=== PATIENT | female | born 1940 | race Caucasian/White ===

== ENCOUNTER 2017-09-05 08:24 | Emergency (ER) | payer MEDICARE, SELFPAY ==
[2017-09-05 08:25] VITALS: BP 122/78; PULSE 94; RESP 18; TEMP 36.6; O2SAT 98; BMI 26.7
--- NOTE | 2017-09-05 08:42 | RAD_ITS ---
STUDY: X-RAY - RIGHT RADIUS AND ULNA REASON FOR EXAM: Female, 76 years old. Cat bite. TECHNIQUE: 2 view(s) of the forearm. COMPARISON: None. FINDINGS: There is no demonstrated soft tissue swelling. Normal visualized radius. Normal visualized ulna. RAD/Forearm 2 Views IMPRESSION: Normal x-ray examination of the radius and ulna. Electronically Signed: Rolf Vogel MD at 10:01 EDT Tel [phone], Service support ,
--- NOTE | 2017-09-05 08:46 | ED.DCSUM_ITS ---
- ER Visit Summary Date of Service: 09/05/17 Chief Complaint: Cat bite History of Present Illness: The patient is a 76 F bit by her cat on the right forearm yesterday. The area was red and swollen this morning. She states she did clean the area thoroughly immediately after the injury. Patient was admitted for IV antibiotics for 2 days a year ago when she was bit in the left hand. She also has a history of infective endocarditis in 2013. Physical Examination: Vital signs are unremarkable. Patient is in no acute distress and nontoxic appearing. Head neck examination is unremarkable. Heart is regular rate and rhythm without murmur. Lung sounds are clear. Right upper extremity examination reveals a linear scab measuring 4 mm in length from the bite wound. There is 4 cm diameter surrounding erythema. There is no fluctuance or drainage. There is no lymphangitic streaking. She has no palpable lymph nodes at the elbow or axilla. Test Results: CBC was normal white count was 78% neutrophils. Chemistry studies are unremarkable. Right forearm x-rays show no radiopaque foreign body. Emergency Department Course and Treatment: Patient is given a dose IV Unasyn here. Blood cultures were obtained. On repeat evaluation patient is resting comfortably. Erythema around the bite is improving. Area is outlined with a surgical marker. Patient will be treated with Augmentin at home and return if symptoms worsen. Treatment Plan: [] Disposition: Discharge Impression: Cat bite right forearm This note was generated with [employer] dictation software. It may contain incorrect words, spelling, and punctuation that were not noted in review of the chart prior to signing ED Disposition - Plan for ED Patient: Chief Complaint: Bite Referrals: Sirisha Mccall MD [Primary Care Provider] -
[2017-09-05 09:28] LABS: Absolute Lymphocyte Count 0.37 X10^3/ul (0.83-4.51); Absolute Neutrophil Count 3.8 X10^3/uL (2.0-7.7); Basophil# 0.01 X10^3/uL; Basophil% 0.2 % (0-1); Eosinophils% 2.1 % (0-5); Hematocrit 38.9 % (37-47); Hemoglobin 12.9 g/dl (12.0-15.0); Lymphocyte # 0.37 X10^3/ul (4.0); Lymphocyte % 7.8 % (19-41); Mean Corp Hgb Conc 33.2 g/gl (32-36); Mean Corpuscular Hgb 31.1 pg (27.0-32.0); Mean Corpuscular Volume 93.7 fL (81-99); Mean Platelet Vol. 10.8 fl (6.2-12.0); Monocyte# 0.53 X10^3/uL; Monocyte% 11.1 % (0-10); Neutrophil # 3.76 X10^3/uL (2.7-7.7); Neutrophil % 78.8 % (47-70); Platelet Count 217 K/mm3 (150-450); RBC Distribution Width CV 13.3 % (11.6-14.6); RBC Distribution Width SD 44.2 fl (35.1-43.9); Red Blood Count 4.15 M/mm3 (4.2-5.4); White Blood Count 4.8 K/mm3 (4.4-11.0)
[2017-09-05 09:29] VITALS: BP 123/65; PULSE 70; RESP 16; O2SAT 100
[2017-09-05 09:36] LABS: Differential Indicated SCAN CRITERIA MET; POSITIVE COUNT NO; POSITIVE DIFFERENTIAL YES; POSITIVE MORPHOLOGY NO
[2017-09-05 09:37] LABS: Anion Gap 5 (5-15); BUN 19 mg/dL (7-18); Calcium,Total 9.3 mg/dL (8.5-10.1); Chloride 107 mmol/L (98-107); EST Glomerular Filtration Rate 57 mL/min (>60); Est Glom Filt Rate - Afr Amer 70 mL/min (>60); Estimated Creatinine Clearance 40.21 ml/min; Glucose 91 mg/dL (74-106); Sodium Level 142 mmol/L (136-145)
--- NOTE | 2017-09-05 10:33 | ED.DEP ---
ED Disposition - Plan for ED Patient: Disposition: Home or Assisted Living Chief Complaint: Bite Instructions: ED Bite Cat Prescriptions: Amox/Clavulanate Tablet [Augmentin Tablet] 875 mg PO Q12H #20 tablet Referrals: Sirisha Mccall MD [Primary Care Provider] - 1 Week
[2017-09-05 11:07] VITALS: BP 122/66; PULSE 71; RESP 18; O2SAT 99
== END 2017-09-05 11:08 | disposition home or self-care (01) ==
PROVIDERS: Emergency Provider Emergency Medicine; Family Provider Internal Medicine; PCP Internal Medicine
DX: S50.871A Other superficial bite of right forearm, initial encounter (principal); W55.01XA Bitten by cat, initial encounter; Y93.9 Activity, unspecified; Y92.9 Unspecified place or not applicable; I10 Essential (primary) hypertension; E78.00 Pure hypercholesterolemia, unspecified; J45.909 Unspecified asthma, uncomplicated; Z85.038 Personal history of other malignant neoplasm of large intestine; Z79.899 Other long term (current) drug therapy; Z87.891 Personal history of nicotine dependence
CPT/HCPCS: 73090; 80048; 85025; 87040; 96365; 99283; J7030; A4216; J0295

== ENCOUNTER → 2018-06-29 10:35 | Outpatient (CLI) | payer MEDICARE, SELFPAY ==
[2018-06-18 15:14] VITALS: BMI 27.6
[2018-06-29 11:40] LABS: AST(SGOT) 32 U/L (15-37); Alanine Aminotransfer ALT/SGPT 35 U/L (13-56); Albumin, Serum 3.9 g/dL (3.2-5.0); Alkaline Phosphatase 74 U/L (45-117); Bilirubin, Direct 0.14 mg/dL (0.00-0.30); Cholesterol 194 mg/dL (200); Globulin 3.7 g/dL (2.2-4.2); High Density Lipoprotein 84 mg/dL; Protein, Total 7.6 g/dL (6.4-8.2); Triglycerides 72 mg/dL; Very Low Density Lipoprotein 14 mg/dL (5-40)
== END ==
PROVIDERS: Family Provider Internal Medicine; PCP Internal Medicine; Referring Provider Internal Medicine Cardiovascular Disease; Visit Provider Internal Medicine Cardiovascular Disease
DX: E78.00 Pure hypercholesterolemia, unspecified (principal)
CPT/HCPCS: 36415; 80061; 80076

== ENCOUNTER 2020-05-14 06:05 | Outpatient (RCR) | payer MEDICARE, SELFPAY ==
[2019-06-26 15:45] VITALS: BMI 26.7
[2020-05-14] MEDS: COVID-19 VACC, MRNA(PFIZER)/PF 30 MCG/0.3 ML SYRINGE IM (16:24)
[2020-06-04] MEDS: COVID-19 VACC, MRNA(PFIZER)/PF 30 MCG/0.3 ML SYRINGE IM (16:21)
== END 2020-08-18 23:59 ==
LOC: IMMUN 06:05
PROVIDERS: PCP Internal Medicine; Referring Provider Family Medicine; Visit Provider Family Medicine
DX: Z23 Encounter for immunization (principal)
CPT/HCPCS: 0001A; 0002A; 91300

== ENCOUNTER 2022-03-31 19:03 | Emergency (ER) | payer MEDICARE, SELFPAY ==
[2022-03-31 19:05] VITALS: BP 128/60; PULSE 50; RESP 17; TEMP 36.5; O2SAT 98; BMI 18.8
--- NOTE | 2022-03-31 19:37 | CT_ITS ---
STUDY: CT BRAIN WITHOUT CONTRAST REASON FOR EXAM: Female, 81 years old. confusion Individualized dose optimization techniques were used for this CT. TECHNIQUE: Transaxial CT imaging of the brain was performed without administration of intravenous contrast material. COMPARISON: None FINDINGS: There are calcifications around the carotid artery. These are noted in the cavernous carotid arteries. Normal calvarium. Normal soft tissues. There is mild cerebral atrophy with widening of the extra-axial spaces and ventricular dilatation. There are areas of decreased attenuation within the white matter tracts of the supratentorial brain, consistent with microvascular disease changes. Normal basal ganglia and thalami. Normal brainstem. There is mild cerebellar atrophy. There is no intracranial hemorrhage. There are no findings of an acute ischemic infarction. Normal visualized paranasal sinuses. ASPECTS Score for Acute Strokes: 12/20 CT/Brain/Head without Contrast IMPRESSION: There are no acute findings. Chronic involutional changes of the brain. Electronically Signed: Oli Kinsey MD at 21:02 EST ,
--- NOTE | 2022-03-31 20:44 | RAD_ITS ---
STUDY: XR Chest 1 View 03/31/2022 8:46 PM REASON FOR EXAM: Female, 81 years old. CHEST PAIN CAD COMPARISON: TECHNIQUE: XR Chest 1 View FINDINGS: There is no demonstrated pleural abnormality. Normal heart size. Normal mediastinum. Normal courtney. Prominent appearing increased interstitial lung markings. Normal visualized pulmonary arteries. There is atherosclerotic calcification of the aortic arch with tortuosity. There are diffuse degenerative changes of the visualized thoracic spine. There is degenerative osteoarthritis of the bilateral shoulders. There is no demonstrated abnormality of the visualized soft tissue structures of the upper abdomen. RAD/Chest 1 View (Portable) IMPRESSION: There are no acute findings. Electronically Signed: Oli Kinsey MD at 21:00 EST ,
[2022-03-31 21:08] LABS: Absolute Lymphocyte Count 0.58 X10^3/uL (0.83-4.51); Absolute Neutrophil Count 4.4 X10^3/uL (2.0-7.7); Basophil# 0.02 X10^3/uL; Basophil% 0.3 % (0-1); Eosinophils% 3.4 % (0-5); Hematocrit 37.7 % (37-47); Hemoglobin 11.6 g/dL (12.0-15.0); Lymphocyte # 0.58 X10^3/ul (0.83-4.51); Lymphocyte % 9.9 % (19-41); Mean Corp Hgb Conc 30.8 g/dL (32-36); Mean Corpuscular Hgb 29.7 pg (27.0-32.0); Mean Corpuscular Volume 96.4 fL (81-99); Mean Platelet Vol. 10.1 fl (6.2-12.0); Monocyte# 0.69 X10^3/uL; Monocyte% 11.8 % (0-10); NRBC Flagged by Analyzer 0 % (0-5); Neutrophil # 4.35 X10^3/uL (2.7-7.7); Neutrophil % 74.4 % (47-70); POSITIVE DIFFERENTIAL YES; Platelet Count 374 K/mm3 (150-450); RBC Distribution Width CV 13.2 % (11.6-14.6); RBC Distribution Width SD 46.8 fl (35.1-43.9); Red Blood Count 3.91 M/mm3 (4.2-5.4); White Blood Count 5.9 K/mm3 (4.4-11.0)
[2022-03-31 21:20] LABS: ALB/GLOB Ratio 0.8 RATIO (0.9-2.4); AST(SGOT) 30 U/L (15-37); Alanine Aminotransfer ALT/SGPT 25 U/L (13-56); Albumin, Serum 3.4 g/dL (3.2-5.0); Alkaline Phosphatase 76 U/L (45-117); Anion Gap 5 (5-15); BUN 15 mg/dL (7-18); Calcium,Total 9.3 mg/dL (8.5-10.1); Chloride 108 mmol/L (98-107); Creatinine, Serum 0.94 mg/dL (0.55-1.02); EST Glomerular Filtration Rate 61 mL/min (>60); Est Glom Filt Rate - Afr Amer 74 mL/min (>60); Globulin 4.1 g/dL (2.2-4.2); Glucose 77 mg/dL (74-106); Lipase 503 U/L (73-393); Potassium 3.8 mmol/L (3.5-5.1); Protein, Total 7.5 g/dL (6.4-8.2); Sodium Level 142 mmol/L (136-145)
[2022-03-31 21:49] LABS: Ammonia < 10.0 umol/L (11-32)
[2022-03-31 21:50] LABS: Bacteria 0 SEEN /hpf (None Seen); Mucous, Urine 0 SEEN /hpf (<or=2+); Red Blood Cells-Urine 0 SEEN /hpf (0-5); Squamous Epithelial Cells - UA 0 SEEN /hpf (5-10)
[2022-03-31 21:51] LABS: Color, Urine Yellow (Yellow); Glucose, Dipstick Normal (Normal); Ketone-Dipstick Negative (Negative); Leukocyte Esterase-Dipstick Negative /ul (Negative); Nitrite-Dipstick Negative (Negative); Occult Blood-Urine Negative /ul (Negative); Protein-Dipstick Negative (Negative); Specific Gravity, Urine 1.015 (1.002-1.030); Urine Bilirubin Dipstick Negative (Negative); Urine Clarity Clear (Clear); Urine Urobilinogen Normal (Normal); Urine pH 6.5 (5.0 - 8.0)
[2022-03-31 21:58] LABS: White Blood Cells 0-5 SEEN /hpf (0-5)
[2022-03-31 22:07] LABS: Differential Indicated SCAN CRITERIA MET
--- NOTE | 2022-03-31 22:19 | EX.ED.VIS.PS ---
HPI HPI - Psych History of Present Illness Chief Complaint: Confusion Narrative Narrative: 81-year-old female who denies significant past medical history presents via EMS with reported confusion. She states she does not know why she is here. However, she thought that she was in another city like [place]. She stated that she lives in [place] and knows her address, but she states that she was at home and all of a sudden the paramedics were there to pick her up. It was reported that she has a neighbor but no family and the neighbor checks in on her and thought she was more confused than usual. Patient denies any pain. No fevers or chills. No nausea or vomiting. She states I feel fine. [facility] Medical History (Updated 03/31/22 @ 22:27 by Gómez Morales MD) Arthritis Asthma Chronic anemia Depression Essential hypertension GERD (gastroesophageal reflux disease) History of infective endocarditis HLD (hyperlipidemia) HTN (hypertension) Infectious endarteritis Lumbar canal stenosis PAF (paroxysmal atrial fibrillation) Paroxysmal atrial fibrillation Pure hypercholesterolemia Syncope Home Medications pravastatin 40 mg tablet 40 mg PO QHS 01/09/14 [History Last Taken 08/11/16] fluoxetine 20 mg capsule 20 mg PO DAILY 02/24/14 [History Last Taken 08/12/16] omega-3 fatty acids-fish oil 300 mg-1,000 mg capsule 1 ea PO TID 02/24/14 [History Last Taken 08/12/16] potassium chloride 10 mEq tablet,extended release(part/cryst) 10 meq PO DAILY 02/24/14 [History Last Taken 08/12/16] ascorbic acid (vitamin C) 500 mg tablet 1 tab PO BID 03/02/14 [History Last Taken 08/12/16] magnesium 250 mg tablet 500 mg PO DAILY 03/02/14 [History Last Taken 08/12/16] Turmeric 500 units PO DAILY 03/23/17 [History Last Taken Unknown] calcium carbonate 600 mg calcium (1,500 mg) tablet 1,200 mg PO QDAY 03/23/17 [History Last Taken Unknown] cholecalciferol (vitamin D3) 50 mcg (2,000 unit) capsule 2,000 unit PO ONCE 03/23/17 [History Last Taken Unknown] cyanocobalamin (vitamin B-12) 5,000 mcg disintegrating tablet 5,000 mcg PO QDAY 06/26/17 [History Last Taken Unknown] lutein 20 mg tablet 20 mg PO DAILY 06/18/18 [History Last Taken Unknown] pyridoxine (vitamin B6) 100 mg tablet 100 mg PO DAILY 06/18/18 [History Last Taken Unknown] selenium 200 mcg capsule 200 mcg PO DAILY 06/18/18 [History Last Taken Unknown] Lactobacillus acidophilus 1.5 mg (250 million cell) capsule (Probiotic Acidophilus) 100 mmu cells PO BID 06/26/19 [History Last Taken Unknown] biotin 2,500 mcg capsule 10 mg PO QDAY 06/26/19 [History Last Taken Unknown] coenzyme Q10 75 mg capsule (Ultra CoQ10) 75 mg PO TID 06/26/19 [History Last Taken Unknown] Allergy/AdvReac Type Severity Reaction Status Date / Time No Known Allergies Allergy Verified 03/31/22 19:04 Family History Father Myocardial infarction Mother CAD (coronary artery disease) Sister Encephalitis Surgical History Colon cancer History of cataract surgery History of laminectomy History of rotator cuff surgery Social History Smoking Status: Former smoker alcohol intake: never substance use type: does not use caffeine: Yes Type: coffee Number of servings: 2 what type of physical activity do you participate in: other details: physical therapy frequency: daily duration: 15-30 minutes/day seatbelt use: always do you feel safe at home: Yes ROS ROS ED ROS Narrative Constitutional: No fever, no chills. HEENT: No sore throat. No neck pain. No loss of vision. No rhinorrhea. Cardiovascular: No chest pain. No palpitations. No pedal edema. Respiratory: No cough, no shortness of breath. Abdominal: No abdominal pain. No nausea. No vomiting. Genitourinary: No dysuria. No hematuria. Musculoskeletal: No myalgias. No arthralgias. Neurologic: No headaches. No dizziness. No lightheadedness. Skin: No rash. No change in color. Psychiatric: No depression. No anxiety. No suicidal ideation. Reported confusion. EXAM Physical Exam Narrative Exam Narrative: Afebrile. Vital signs noted. HEENT: Normocephalic. Atraumatic. PERRL, EOMI. Neck soft and supple. No point tenderness or step off. Cardiovascular: Regular rate and rhythm. No murmurs, rubs, or gallops appreciated. Respiratory: No tachypnea. Lungs clear to auscultation bilaterally. Gastrointestinal: Abdomen soft, nontender, with normoactive bowel sounds. No rebound or guarding. Neurological: Awake. Alert. Oriented to person but not place or time, refusing to answer certain questions. Stated the month was nonfocal, nonlateralizing. Skin: No rash. Normal color. No pallor. Musculoskeletal: No pedal edema. Full range of motion extremities. Const Vital Signs: 03/31/22 19:05 03/31/22 23:00 Temperature 97.7 F L Temperature Source Oral Pulse Rate 50 L Respiratory Rate 17 16 Blood Pressure 128/60 H Blood Pressure Mean 82 Pulse Ox 98 Oxygen Delivery Method Room Air MDM MDM MDM Narrative Medical decision making narrative: Comprehensive work-up was pursued initially. I am unsure as to the cause of her confusion, but it may be a urinary tract infection. She denies any abdominal pain or nausea or vomiting. I obtained basic laboratory work and reviewed it. In review of her laboratory work she has a normal white count of 5.9, hemoglobin stable at 11.6, platelet count 374. CMP shows chloride slightly elevated at 108 which I think is nonspecific, normal BUN of 15 and normal creatinine of 0.94, no dehydration. Glucose is appropriately elevated at 77 with a normal anion gap of 5. Ammonia level is less than 10, she does not have hepatic encephalopathy. Her lipase is elevated at 503 which I think is nonspecific. She has no abdominal pain and there has been no nausea or vomiting here in the emergency department. Urinalysis is negative for infection. I am unsure as to the cause of her confusion once again as there seems to be no organic cause to it including dehydration, urinary tract infection or pneumonia because in review of her her chest x-ray and on my interpretation, there is no acute process. I also obtained a CT of the brain which shows chronic involutional Domo changes but no mass or hemorrhage. I had reviewed the imaging, and the radiology report and agree. I then learned from the RN that the patient has been pink slipped by the police. It was reported that she lives alone with no family members or close friends that check in on her other than her neighbor. She believes that she was in [place] and explained that she lived in [place]. She did not know what day it was. She also believes that she was 51 years old and was talking to her mother that had in 2005. They state that the neighbors had told them that she had lost a lot of weight in the past several months and sometimes forgets to eat or take care of herself. I will add a urine for drugs of abuse and alcohol level, but I do feel that she needs evaluation by crisis for geriatric psychiatric evaluation. I feel that she is medically cleared. Patient is in stable condition At this point in time, she will be signed out to the overnight physician, Dr. Kike Guallpa, for possible placement in a geriatric psychiatric facility after evaluation by crisis. Lab Data Attestation: I reviewed the patient's lab results. Labs: Laboratory Results - last 24 hr 03/31/22 03/31/22 03/31/22 20:56 20:56 20:56 WBC 5.9 RBC 3.91 L Hgb 11.6 L Hct 37.7 MCV 96.4 MCH 29.7 MCHC 30.8 L RDW Std Deviation 46.8 H RDW Coeff of Leslie 13.2 Plt Count 374 MPV 10.1 Immature Gran % (Auto) 0.200 Neut % (Auto) 74.4 H Lymph % (Auto) 9.9 L Haakon % (Auto) 11.8 H Eos % (Auto) 3.4 Baso % (Auto) 0.3 Absolute Neuts (auto) 4.4 Absolute Lymphs (auto) 0.58 L Nucleated RBC % 0 Differential Comment SCANNED Sodium 142 Potassium 3.8 Chloride 108 H Carbon Dioxide 29.0 Anion Gap 5 BUN 15 Creatinine 0.94 Estim Creat Clear Calc 37.60 Est GFR (MDRD) Af Amer 74 Est GFR (MDRD) Non-Af 61 BUN/Creatinine Ratio 16.0 Glucose 77 Calcium 9.3 Total Bilirubin 0.10 L AST 30 ALT 25 Alkaline Phosphatase 76 Ammonia < 10.0 L Total Protein 7.5 Albumin 3.4 Globulin 4.1 Albumin/Globulin Ratio 0.8 L Lipase 503 H Urine Color Urine Clarity Urine pH Ur Specific Helm Urine Protein Urine Glucose (UA) Urine Ketones Urine Occult Blood Urine Nitrite Urine Bilirubin Urine Urobilinogen Ur Leukocyte Esterase Urine RBC Urine WBC Ur Squamous Epith Cells Urine Bacteria Urine Mucus Urine Opiates Screen Urine Methadone Screen Ur Barbiturates Screen Ur Phencyclidine Scrn Ur Amphetamines Screen MDMA (Ecstasy) Screen U Benzodiazepines Scrn Urine Cocaine Screen U Cannabinoids Screen Ur Drug Screen Comment Ethyl Alcohol 03/31/22 03/31/22 03/31/22 21:42 22:25 22:27 WBC RBC Hgb Hct MCV MCH MCHC RDW Std Deviation RDW Coeff of Leslie Plt Count MPV Immature Gran % (Auto) Neut % (Auto) Lymph % (Auto) Haakon % (Auto) Eos % (Auto) Baso % (Auto) Absolute Neuts (auto) Absolute Lymphs (auto) Nucleated RBC % Differential Comment Sodium Potassium Chloride Carbon Dioxide Anion Gap BUN Creatinine Estim Creat Clear Calc Est GFR (MDRD) Af Amer Est GFR (MDRD) Non-Af BUN/Creatinine Ratio Glucose Calcium Total Bilirubin AST ALT Alkaline Phosphatase Ammonia Total Protein Albumin Globulin Albumin/Globulin Ratio Lipase Urine Color Yellow Urine Clarity Clear Urine pH 6.5 Ur Specific Helm 1.015 Urine Protein Negative Urine Glucose (UA) Normal Urine Ketones Negative Urine Occult Blood Negative Urine Nitrite Negative Urine Bilirubin Negative Urine Urobilinogen Normal Ur Leukocyte Esterase Negative Urine RBC 0 SEEN Urine WBC 0-5 SEEN Ur Squamous Epith Cells 0 SEEN Urine Bacteria 0 SEEN Urine Mucus 0 SEEN Urine Opiates Screen NEGATIVE Urine Methadone Screen NEGATIVE Ur Barbiturates Screen NEGATIVE Ur Phencyclidine Scrn NEGATIVE Ur Amphetamines Screen NEGATIVE MDMA (Ecstasy) Screen NEGATIVE U Benzodiazepines Scrn NEGATIVE Urine Cocaine Screen NEGATIVE U Cannabinoids Screen NEGATIVE Ur Drug Screen Comment Ethyl Alcohol < 3.0 Radiography Diagnostic Testing: Clinical Impression(s) from Imaging Studies Brain CT 03/31/22 19:37 IMPRESSION: There are no acute findings. Chronic involutional changes of the brain. Electronically Signed: Oli Kinsey MD at 21:02 EST , Chest X-Ray 03/31/22 20:44 IMPRESSION: There are no acute findings. Electronically Signed: Oli Kinsey MD at 21:00 EST , Discharge Plan Triage Chief Complaint: Confusion ED Provider: Gómez Morales Dx/Rx/DC Orders Clinical Impression: Confusion, Unable to care for self, Disorientation Prescriptions: No Action calcium carbonate 600 mg calcium (1,500 mg) tablet 1,200 mg PO QDAY cholecalciferol (vitamin D3) 2,000 unit capsule 2,000 unit PO ONCE cyanocobalamin (vitamin B-12) 5,000 mcg tablet,disintegrating 5,000 mcg PO QDAY lutein 20 mg tablet 20 mg PO DAILY pyridoxine (vitamin B6) 100 mg tablet 100 mg PO DAILY selenium 200 mcg capsule 200 mcg capsule 200 mcg PO DAILY Ultra CoQ10 75 mg capsule 75 mg PO TID pravastatin 40 MG tablet 40 mg PO QHS Label Comments: CHOLESTEROL LOWERING fluoxetine 20 MG capsule 20 mg PO DAILY potassium chloride 10 MEQ tablet 10 meq PO DAILY omega-3 fatty acids-fish oil 1 EACH capsule 1 ea PO TID magnesium 250 MG tablet 500 mg PO DAILY ascorbic acid (vitamin C) 500 MG tablet 1 tab PO BID Turmeric 500 units PO DAILY Probiotic Acidophilus 1.5 mg (250 million cell) capsule 100 mmu cells PO BID biotin 2,500 mcg capsule 10 mg PO QDAY Primary Care Provider: Sirisha Mccall Referrals: Sirisha Mccall MD [Primary Care Provider] -
[2022-03-31 22:43] LABS: Amphetamine Urine VISTA NEGATIVE (<1000 ng/mL); Barbiturate Urine VISTA NEGATIVE (< 200 ng/mL); Benzodiazepine Urine VISTA NEGATIVE (< 200 ng/mL); Cocaine Urine VISTA NEGATIVE (< 300 ng/mL); Ecstacy Urine VISTA NEGATIVE (< 500 ng/mL); Methadone Urine VISTA NEGATIVE (< 300 ng/mL); PCP Urine VISTA NEGATIVE (< 25 ng/mL); THC Urine VISTA NEGATIVE (< 50 ng/mL); Vista UDS pH Range 6
[2022-03-31 23:00] VITALS: RESP 16
[2022-03-31 23:01] LABS: Alcohol, Blood (Medical)-Serum < 3.0 mg/dL
[2022-03-31 23:08] LABS: Differential Comment SCANNED
[2022-04-01 01:00] VITALS: BP 127/64; PULSE 62; RESP 16; O2SAT 98
[2022-04-01] MEDS: LORazepam 1 MG Tablet PO (02:00)
[2022-04-01] MEDS: DiphenhydrAMINE 25 MG Capsule PO (02:00)
--- NOTE | 2022-04-01 02:00 | ED.RN ---
Pt having to be redirected numerous times back into room. Pt thinking she has a car in the parking lot, talking to her mom. Dr. Guallpa updated. New order for Ativan and Benadryl. Pt took Po meds with water and redirected numerous times. 1:1 being provided by [facility].
--- NOTE | 2022-04-01 04:04 | ED.RN ---
jojo called and information given at this time for admission
[2022-04-01 05:15] VITALS: RESP 16
[2022-04-01 08:00] VITALS: RESP 14
[2022-04-01 08:37] VITALS: BP 140/72; PULSE 70; RESP 14; O2SAT 95
[2022-04-01 09:26] VITALS: BP 118/64; PULSE 69; O2SAT 95
[2022-04-01 10:00] VITALS: BP 118/64; PULSE 67; RESP 14; TEMP 35.5
== END 2022-04-01 10:11 ==
PROVIDERS: Emergency Provider Emergency Medicine; PCP Internal Medicine; Visit Provider Emergency Medicine
DX: R41.0 Disorientation, unspecified (principal); Z87.891 Personal history of nicotine dependence
CPT/HCPCS: 70450; 71045; 80053; 80307; 81001; 82077; 82140; 83690; 85025; 87811; 99285; A4216